=== PATIENT | female | born 1940 | race Caucasian/White ===

== ENCOUNTER → 2016-06-04 | Outpatient (CLI) | payer MEDICARE, BC ==
[~2016-06-04] MED LIST: LEVO25TA5 PO; NFLOSA25TA PO; NO HOME MEDS; OMEP20TA33 PO
--- NOTE | 2016-06-04 18:55 | Diagnostic Imaging Report ---
INDICATION: Right breast microcalcifications. HISTORY: 75-year-old female who has a negative family history of breast cancer in the first order relative. She had some microcalcifications assessed on 08/04/2015 which were categorized as BI-RADS 4A, low suspicion. A stereotactic biopsy could not be performed. She presents for followup evaluation, 9 months after the prior study on 08/18/2015. She also reports diffuse left breast pain. There are no reports of any palpable lumps or focal pain. COMPARISONS: 07/19/2014, 08/04/2015, 08/12/2015, 08/18/2015. Bilateral digital mammography with computer-assisted detection is performed. The current study was also evaluated with a Computer Aided Detection (CAD) system. FINDINGS: Right breast: The right breast density pattern does not show any worrisome changes in the interval. Calcified oil cysts are visible in the upper-outer right breast. Reidentified are areas of microcalcification located upper-outer. The largest area has decreased in amount and size since the prior examination. There are 2 small new areas posteriorly which are not worrisome. I suspect these are related to fat necrosis. There is no worrisome lesion. Left breast: No dominant mass, suspicious microcalcification, or other significant abnormality is identified. IMPRESSION: 1. No malignant findings. Probably benign features of the right breast. Followup with right mammogram in 6 months. ACR BI-RADS Category 3: Probably benign findings. Result letter will be mailed to the patient. Note: At least 10% of breast cancer is not imaged by mammography. Dictated by: Dictated on workstation # [id number]
== END ==
LOC: RAD 09:37
PROVIDERS: ATTEND Family Medicine
DX: R92.1 Mammographic calcification found on diagnostic imaging of breast (principal); N64.4 Mastodynia